=== PATIENT | female | born 1945 ===

== ENCOUNTER 2022-06-16 07:45 | Inpatient (IN) | payer OTHER ==
[~2022-06-16] VITALS: Ht 167.6 cm; Wt 86.2 kg
[2022-06-18] MEDS ORDERED: PENTOXIFYLLINE400 MG (08:31)
[2022-06-18] MEDS ORDERED: FAMOTIDINE20 MG (08:31)
[2022-06-18] MEDS ORDERED: SIMVASTATIN10 MG (08:31)
[2022-06-18] MEDS ORDERED: METOPROLOL SUCC50 MG (08:31)
[2022-06-18] MEDS ORDERED: IRBESARTAN150 MG (08:31)
[2022-06-18] MEDS ORDERED: FUROSEMIDE20 MG (08:31)
== END 2022-06-20 09:53 | disposition home or self-care (01) | DRG 743 ==
LOC: O/R 06-17 06:45 → OB/GYN 06-17 06:45 → SURG 06-17 07:45 → EDBD 06-17 07:45 → SURG 06-17 12:45 → OB/GYN 06-17 22:25
PROVIDERS: ADMIT Specialist; ATTEND Specialist
PROC: 0UT70ZZ Resection of Bilateral Fallopian Tubes, Open Approach (ICD-10-PCS; 2022-06-17)
PROC: 0UT20ZZ Resection of Bilateral Ovaries, Open Approach (ICD-10-PCS; 2022-06-17)
PROC: 07BC0ZZ Excision of Pelvis Lymphatic, Open Approach (ICD-10-PCS; 2022-06-17)
PROC: 0DBU0ZZ Excision of Omentum, Open Approach (ICD-10-PCS; 2022-06-17)
PROC: 0BBT0ZZ Excision of Diaphragm, Open Approach (ICD-10-PCS; 2022-06-17)
PROC: 3E1M38Z Irrigation of Peritoneal Cavity using Irrigating Substance, Percutaneous Approach (ICD-10-PCS; 2022-06-17)
PROC: 0UT90ZZ Resection of Uterus, Open Approach (ICD-10-PCS; principal; 2022-06-17 12:45)
DX: D25.1 Intramural leiomyoma of uterus (principal); D25.0 Submucous leiomyoma of uterus; D25.2 Subserosal leiomyoma of uterus; D27.1 Benign neoplasm of left ovary; N72 Inflammatory disease of cervix uteri; N83.312 Acquired atrophy of left ovary; Z20.822 Contact with and (suspected) exposure to COVID-19; I70.298 Other atherosclerosis of native arteries of extremities, other extremity